=== PATIENT | female | born 1940 | race African-American/Black ===

== ENCOUNTER 2017-05-18 11:35 | Emergency (ER) | payer MEDICARE, MEDICAID ==
[2017-05-18 12:38] LABS: #Basophils 0.1 thou/uL (0.0-0.2); #Eosinphils 0.1 thou/uL (0.0-0.7); #Lymphocytes 1.2 thou/uL (1.20-3.40); #Monocytes 0.5 thou/uL (0.11-0.59); #Neutrophils 5.3 thou/uL (1.40-6.50); %Basophils 1.1 % (0.0-1.0); %Eosinophils 1.8 % (0.0-10.0); %Lymphocytes 16.3 % (21.0-51.0); %Monocytes 7.5 % (0.0-10.0); Hematocrit 37.1 % (36.0-47.0); Mean Platelet Volume 5.7 fL (7.4-10.4); Red Blood Cell (RBC) Count 3.88 mill/uL (4.20-5.40); White Blood Cell (WBC) Count 7.2 thou/uL (4.8-10.8)
[2017-05-18 12:44] LABS: PTT 30.5 SEC (22.9-36.1); Prothrombin Time 13.3 SEC (12.0-14.7)
[2017-05-18 12:53] LABS: ALT (SGPT) Less than 7 U/L (8-55); AST (SGOT) 12 U/L (5-34); Alkaline Phosphatase 79 U/L (40-150); Anion Gap 11 mmol/L (10-20); BUN (Urea Nitrogen) 9 mg/dL (9.8-20.1); Bilirubin, Total 0.6 mg/dL (0.2-1.2); CK (CPK) 62 U/L (29-168); Calc. Creatinine Clearance 0 mL/min (70-130); Carbon Dioxide 32 mmol/L (23-31); Chloride 101 mmol/L (98-107); Estimated GFR-MDRD 58; Globulin 3.5 g/dL (2.4-3.5); Lipase Less than 4 U/L (8-78); Protein, Total 6.9 g/dL (6.0-8.3)
[2017-05-18 12:58] LABS: Troponin I Less than 0.010 ng/mL (< 0.028)
[2017-05-18] MEDS ORDERED: Ondansetron HCl/PF 4 MG/2 ML Vial ONE (14:38)
--- NOTE | 2017-05-18 15:26 | RAD ---
AP CHEST: History: Chest pain. Date: 05-18-17 Comparison: 12-02-16 FINDINGS: AP chest demonstrates elevation of the right hemidiaphragm. Mild cardiomegaly is seen. Ectasia of th e aorta is seen. Lungs are well aerated. No evidence of active intrathoracic disease noted. No evide nce of effusions, pneumonia, or pneumothorax seen. IMPRESSION: Elevated right hemidiaphragm, unchanged since previous comparison radiograph chest. POS: [facility]
--- NOTE | 2017-05-18 17:24 | ULT ---
BILATERAL LOWER EXTREMITY VENOUS DOPPLER ULTRASOUND: Date: 05-18-17 History: 76-year-old with limited movement and bilateral lower extremity pain. FINDINGS: Multiple longitudinal and transverse images of the right and left lower extremity venous system is o btained. Real-time, color flow, and spectral waveform doppler analysis demonstrates no evidence of a cute or old clot seen in the right or left common femoral, superficial femoral, femoral profunda, po pliteal, posterior tibial vein, post trifurcation veins, or greater saphenous vein. IMPRESSION: No evidence of right or left lower extremity deep venous thrombosis. POS: [facility]
== END 2017-05-18 16:02 | disposition home or self-care (01) ==
LOC: ERS 11:35
DX: L03.116 Cellulitis of left lower limb (principal); L03.115 Cellulitis of right lower limb; I11.0 Hypertensive heart disease with heart failure; I50.9 Heart failure, unspecified; E03.9 Hypothyroidism, unspecified; J44.9 Chronic obstructive pulmonary disease, unspecified; F17.200 Nicotine dependence, unspecified, uncomplicated
CPT/HCPCS: 36415; 71010; 80053; 82553; 83690; 83880; 84484; 85025; 85610; 85730; 93005; 93970; 94640; 94760; 96374; J2405

== ENCOUNTER 2018-01-15 07:43 | Outpatient (CLI) | payer MEDICARE, MEDICAID ==
--- NOTE | 2018-01-15 12:21 | CT ---
CT ABDOMEN AND PELVIS: Date: 01/15/18 COMPARISON: 11/10/15. HISTORY: Abdominal pain, epigastric pain for 3-4 months with nausea and vomiting. TECHNIQUE: Serial axial CT imaging is provided at 5 mm intervals from lung bases through pubic symphysis with or al contrast. Coronal reformatted imaging obtained. FINDINGS: The lack of IV contrast limits assessment of the viscera, vascular structures, and for lymphadenopath y. Extensive coronary arterial calcification noted. The visualized lung bases are unremarkable. No free intraperitoneal air or fluid is seen. The gallbladder is surgically absent. Noncontrast enhanced appearance of the liver is unremarkable. There is a hypodense lesion within the inferior anterior aspect of the spleen measuring 3.9 cm, uncha nged. The pancreas and adrenal glands are unremarkable. There is no nephrolithiasis or obstructive uropathy on either side. A gastric suture line is present. There is descending colonic and sigmoid diverticulosis with no evidence for diverticulitis. No focal area of bowel inflammatory change or bowel obstruction is noted. There is diastasis of the anterior a bdominal wall musculature, stable. There is multifocal atherosclerotic calcification of the infrarenal abdominal aorta and its branches. There is a small sliding type hiatal hernia, stable. Limited assessment for lymphadenopathy within the abdomen/pelvis appears unremarkable. There is mild stranding of the subcutaneous fat anterior lower pelvic region at the axial level of th e pubic symphysis and just below the axial level of the pubic symphysis, primarily right-sided, with mild skin thickening. Cellulitis in this region is a possibility. Osseous structures demonstrate mult ilevel lower lumbar spine facet hypertrophic change with disc space narrowing and degenerative end pl ate change as well. IMPRESSION: 1. No evidence for free intraperitoneal air or small bowel obstruction. 2. Atherosclerotic disease as detailed above. 3. Findings suggesting possible mild cellulitis in right inguinal region and the midline soft tissue s anterior to the pubic symphysis. POS: [facility]
== END 2018-01-15 07:44 | disposition home or self-care (01) ==
LOC: CT 07:43
PROVIDERS: ATTEND Surgery
DX: R19.06 Epigastric swelling, mass or lump (principal); I25.10 Atherosclerotic heart disease of native coronary artery without angina pectoris
CPT/HCPCS: 74176

== ENCOUNTER 2018-03-14 14:44 | Inpatient (IN) | payer MEDICARE, MEDICAID ==
[2018-03-14] MEDS ORDERED: Albuterol Sulfate 2.5 mg/3 ml Neb ONE ×2 (14:51→14:52)
[2018-03-14] MEDS ORDERED: Magnesium Sulfate 2 GM/100 ML BAG ONE (14:56)
[2018-03-14] MEDS ORDERED: Dexamethasone 10 MG/ML VIAL ONE (14:56)
[2018-03-14 15:17] LABS: Hemoglobin 12.5 g/dL (12.0-16.0); Mean Corpuscular HGB CONC 32.6 g/dL (32.0-36.0); Mean Corpuscular Hemoglobin 30.2 pg (27.0-31.0); Mean Corpuscular Volume 92.6 fL (78.0-98.0); Mean Platelet Volume 6.2 fL (7.4-10.4); Platelet Count 376 thou/uL (130-400); RBC Distribution Width 13.6 % (11.5-14.5); Red Blood Cell (RBC) Count 4.14 mill/uL (4.20-5.40); White Blood Cell (WBC) Count 14.9 thou/uL (4.8-10.8)
[2018-03-14 15:39] LABS: ALT (SGPT) 27 U/L (8-55); AST (SGOT) 52 U/L (5-34); Albumin 3.6 g/dL (3.4-4.8); Alkaline Phosphatase 87 U/L (40-150); Anion Gap 15 mmol/L (10-20); BUN (Urea Nitrogen) 43 mg/dL (9.8-20.1); Band 23 % (5-11); Bilirubin, Total 1.1 mg/dL (0.2-1.2); CK (CPK) 1257 U/L (29-168); Calc. Creatinine Clearance 0 mL/min (70-130); Calcium 8.9 mg/dL (7.8-10.44); Carbon Dioxide 28 mmol/L (23-31); Chloride 98 mmol/L (98-107); Estimated GFR-MDRD 19; Globulin 3.2 g/dL (2.4-3.5); Glucose 134 mg/dL (83-110); Lipase Less than 4 U/L (8-78); Lymphocytes 5 % (21-51); MDiff Complete? YES; Monocytes 4 % (0-10); Neutrophil 68 % (42-75); PLT Morphology Comment Appears Adequate; Potassium 3.9 mmol/L (3.5-5.1); Protein, Total 6.8 g/dL (6.0-8.3); Sodium 137 mmol/L (136-145)
[2018-03-14 15:44] LABS: Troponin I 0.265 ng/mL (< 0.028)
[2018-03-14 15:48] LABS: CKMB 9.4 ng/mL (0-6.6)
--- NOTE | 2018-03-14 15:52 | RAD ---
AP VIEW OF THE CHEST: INDICATION: Cough and sore throat for 3 days. COMPARISON: Prior exam dated 05/18/17. FINDINGS: There is airspace consolidation within the right upper lobe suspicious for pneumonia. Patchy opaciti es are also present within the right lower lobe. The left lung is clear. Cardiomegaly is stable. P ostsurgical changes of the left shoulder are similar-appearing. IMPRESSION: Findings suspicious for right lung pneumonia predominantly in the right upper lobe. Recommend radiog raphic followup to resolution. POS: [facility]
[2018-03-14 15:55] LABS: pH, Arterial 7.24 (7.35-7.45)
[2018-03-14 15:56] LABS: Base Excess (BEa) 2.8 mEq/L (-2.0 to +3.0); CO2 Tension 77.4 mmHg (35.0-45.0); Hematocrit-ABG 38.6 % (36.0-47.0); Hemoglobin (Hb) 11.4 g/dL (12.0-16.0); O2 Tension (PaO2) 292.3 mmHg (> 70.0)
[2018-03-14 15:57] LABS: Bilirubin Moderate (Negative); Blood, Urine Negative (Negative); Clarity CLOUDY (Clear); Glucose, Urine (Dipstick) Negative (Negative); Leukocyte Small (Negative); Nitrite Negative (Negative); Protein, Urine (Dipstick) 30 mg/dL (Neg-Trace); Specific Gravity, Urine 1.021 (1.002-1.036)
[2018-03-14 15:57] LABS: Analyzer IN Cardio ER; Calcium, Ionized 1.1 mmol/L (1.12-1.30); Puncture Site LRA
[2018-03-14 15:59] LABS: Squamous Epithelial 0-3 HPF (0-3); WBC/HPF 0-3 HPF (0-3)
[2018-03-14 16:00] LABS: Pathc Cast-AUWi Flag 11.92 (0-2.49)
[2018-03-14 16:18] LABS: Bacteria/HPF 2+ HPF (None Seen); Hyaline Casts/LPF 0-3 HYALINE CAST LPF (0-3 Hyaline); RBC/HPF None Seen HPF (0-3)
[2018-03-14 16:19] LABS: Manual Microscopic Reviewed? No Path Casts Seen; Renal Epithelial None Seen HPF (0-3); Transitional Epithelial NONE SEEN HPF (0-3)
[2018-03-14] MEDS ORDERED: Aspirin 300 MG Suppository ONE (16:21)
[2018-03-14] MEDS ORDERED: Acetaminophen 650 MG Suppository PR PRN (17:57)
[2018-03-14] MEDS ORDERED: Ondansetron HCl/PF 4 MG/2 ML Vial IVP PRN (17:57)
--- NOTE | 2018-03-14 18:25 | CT ---
CT HEAD WITHOUT CONTRAST: 03/14/18 Multiple axial tomograms obtained through the head without IV enhancement. INDICATIONS: Mental status change. COMPARISON: Comparison made to head CT of April 2015. Ventricles have normal size and position. There is a new lucency seen in the periventricular white ma tter right frontal lobe suggesting an old lacunar infarct which has occurred since the prior study. There is no evidence of acute hemorrhage or mass. No evidence of acute cortical infarct. The sinuses and mastoids are aerated. IMPRESSION: There are chronic ischemic changes with evidence of a lacunar infarct in the deep white matter on the right which has occurred since prior study. This does not appear acute. No acute process identified. POS: [facility]
[2018-03-14 19:54] VITALS: BMI 44.3
[2018-03-14] MEDS ORDERED: Famotidine/PF 20 mg/2ml Vial SLOW IVP SCH (21:00)
[2018-03-14] MEDS: Cefepime 1 GM in Sodium Chloride 0.9% 100 ML IVPB SCH (21:08)
[2018-03-14] MEDS: Sodium Chloride 0.9% 1,000 ML IV SCH (21:09)
[2018-03-14] MEDS: Docusate 100 MG CAP PO SCH (21:09)
[2018-03-14] MEDS: Heparin 5,000 UNITS/ML VIAL SC SCH (21:09)
--- NOTE | 2018-03-14 23:40 | HP ---
REASON FOR ADMISSION: Acute respiratory failure, sepsis, acute kidney injury, CHF exacerbation, demand ischemia, acute encephalopathy. HISTORY OF PRESENT ILLNESS: Please note majority of this history is obtained by talking to ER physician, Dr. Rosas; son, Mr. Jose Jorge and prior records as patient is not oriented and is on BiPAP. The patient's hospice nurse from [facility] called the son over telephone this morning that she was getting more confused and was in respiratory distress. She was unable to move around or respond to questions. The son finally revoked hospice and asked her to call EMS to take her to the emergency room. When EMS arrived at the scene, she was saturating 65% on room air. She was put on BiPAP and brought to the emergency room. She has had multiple workups done here which reveal the above- mentioned diagnosis. The patient is currently obtunded and barely opens her eyes to deep painful stimulation here. She was under hospice for heart failure and kidney disease. PAST MEDICAL AND SURGICAL HISTORY: History of CHF likely chronic kidney disease , multiple surgeries for ventral hernia, hypertension, coronary artery disease with prior stents, history of gastroparesis from opiate use, hypothyroidism, history of lactose intolerance, chronic headaches, osteoarthritis, obesity, dyslipidemia, vitamin D deficiency, obstructive sleep apnea, chronic anemia, depression, insomnia, GERD, anxiety disorder, prior gastric sleeve, left shoulder surgery, bilateral knee replacement, cholecystectomy, hysterectomy, bowel resection. ALLERGIES: PROVENTIL, REGLAN, SULFA and IODINE. PERSONAL HISTORY: Does not abuse alcohol or drugs. Has a prior history of smoking in the past per Dr. Jose Mix history and physical done in 01/2015. FAMILY HISTORY: Cannot be obtained as patient is not oriented or awake. MEDICATIONS: Per prior records, patient was on baclofen 10 mg twice daily, Symbicort inhaler twice daily, vitamin D 5000 units daily, clonidine 0.1 mg 3 times daily, vitamin B12 of 1 mL IM shots once a month, fluoxetine 60 mg daily, Lasix 40 mg daily, Shirley p.r.n., levothyroxine 200 mcg daily, lorazepam p.r.n., metolazone p.r.n., Protonix 40 mg daily, K-Dur 20 mEq daily, promethazine p.r.n. for itching, zolpidem 5 mg at bedtime. REVIEW OF SYSTEMS: Cannot be obtained as patient is obtunded at present. CODE STATUS: The patient carries out of hospital DNR, which she signed on the 16th of this month. Power of criminal attorney is her son, Mr. Jose Jorge, the number to reach him is [phone]. I have confirmed do not resuscitate status with Mr. Garcia, the son. PHYSICAL EXAMINATION: GENERAL: The patient is a 77-year-old female who is currently in respiratory distress on BiPAP. VITAL SIGNS: Blood pressure 116/94, pulse 94 per minute, respiratory rate 20 per minute, saturating 96% on BiPAP, temperature was 99.5. NECK: Supple. No elevated JVD. HEENT: Eyes, there is mild pallor. No icterus. Pupils are reacting to light. CARDIOVASCULAR SYSTEM: S1, S2 heard. Regular rhythm. RESPIRATORY SYSTEM: Air entry 1+ bilateral. Scattered rales plus in the infra- axillary area. Rhonchi plus bilaterally. ABDOMEN: Soft, bowel sounds heard. No tenderness, rigidity or guarding. EXTREMITIES: There is peripheral edema, no calf tenderness, no obvious size discrepancies in the calf area. Peripheral pulses are 1+ bilateral. No ischemic ulcerations. The patient has a dressing on her foot. CENTRAL NERVOUS SYSTEM: The patient does not have any gross focal signs seen. She is obtunded for a complete neurologic exam to be completed. PSYCHIATRIC: Cannot be assessed as patient is obtunded at present. LABORATORY DATA: White count of 14, H&H 12 and 38, platelet count 376 with 68% neutrophils and 23% bands. ABG done shows a pH of 7.24, PCO2 of 77, pO2 of 292 , bicarbonate is 32 on the blood gas. BUN 43, creatinine 2.8, serum bicarbonate is 28, potassium 3.9, glucose 134, AST 52, ALT 27, CK-MB 9.4. CK levels 1257. BNP is 826, albumin is 3.6, troponin I 0.26. UA shows small leukocyte esterase with 2+ bacteria. Chest x-ray done shows findings suspicious for right upper lobe pneumonia. A CT brain has been done. The official results are pending at present. EKG done shows normal sinus rhythm at 94 beats per minute with nonspecific ST-T wave changes. CLINICAL IMPRESSION AND PLAN: The patient will be admitted to [facility] for acute respiratory failure with hypoxia and hypercarbia, sepsis, acute kidney injury, acute encephalopathy, pneumonia. Blood and urine cultures will be obtained in the ER here. She will be placed on cefepime and Levaquin for now. We will place her also on steroids and DuoNebs. The patient has signed out of hospital DNR on the 16 of this month and I have confirmed this with son as well. We will obtain an echo with 2D Doppler for current LV function. We will also gently hydrate her with normal saline at 100 mL per hour. The current plan is to see if she responds to these measures by tomorrow. If patient were to decline, she will be placed under inpatient hospice. Mr. Jose Jorge son is aware of the current plan and approves it. He does not want her to suffer. No heroic measures need to be done on her per Mr. Garcia. He is okay with the current BiPAP and fluid resuscitation with antibiotics for now. ANTONELLA
[2018-03-15 04:21] LABS: Albumin 3.2 g/dL (3.4-4.8); Anion Gap 15 mmol/L (10-20); BUN (Urea Nitrogen) 41 mg/dL (9.8-20.1); Calc. Creatinine Clearance 46 mL/min (70-130); Calcium 8.6 mg/dL (7.8-10.44); Carbon Dioxide 26 mmol/L (23-31); Chloride 104 mmol/L (98-107); Estimated GFR-MDRD 29; Glucose 152 mg/dL (83-110); Phosphorus 4.1 mg/dL (2.3-4.7); Potassium 3.8 mmol/L (3.5-5.1); Sodium 141 mmol/L (136-145)
[2018-03-15] MEDS: Sodium Chloride 0.9% 1,000 ML IV SCH ×3 (05:09→18:28)
[2018-03-15] MEDS: Levothyroxine Sodium 100 MCG TAB PO SCH (05:09)
[2018-03-15 05:12] LABS: Band 32 % (5-11); Hemoglobin 12.1 g/dL (12.0-16.0); Lymphocytes 6 % (21-51); MDiff Complete? YES; Mean Corpuscular HGB CONC 32.7 g/dL (32.0-36.0); Mean Corpuscular Hemoglobin 30.4 pg (27.0-31.0); Mean Corpuscular Volume 92.8 fL (78.0-98.0); Mean Platelet Volume 6.4 fL (7.4-10.4); Metamyelocyte 6 % (0-0); Monocytes 6 % (0-10); Neutrophil 50 % (42-75); Platelet Count 321 thou/uL (130-400); RBC Distribution Width 13.6 % (11.5-14.5); Red Blood Cell (RBC) Count 3.99 mill/uL (4.20-5.40); White Blood Cell (WBC) Count 10.4 thou/uL (4.8-10.8)
[2018-03-15] MEDS ORDERED: Prevnar 13-Val Conj/PF 0.5 ML SYRINGE IM ONE (09:00)
[2018-03-15] MEDS: Cefepime 1 GM in Sodium Chloride 0.9% 100 ML IVPB SCH ×2 (09:22→20:50)
[2018-03-15] MEDS: Heparin 5,000 UNITS/ML VIAL SC SCH ×3 (09:23→20:50)
[2018-03-15] MEDS: Docusate 100 MG CAP PO SCH ×2 (09:23→20:56)
--- NOTE | 2018-03-15 11:50 | PDOC.PN ---
- Subjective Encounter Start Date: 03/15/18 Encounter Start Time: 07:15 Subjective: is awake, responds well to verbal stimuli this am -: is off bipap -: has cough with expectoration of thick brown sputum, struggles to bring itup - Objective MAR Reviewed: Yes Vital Signs & Weight: Vital Signs (12 hours) Temp Pulse Resp BP Pulse Ox 03/15/18 11:29 97.5 F L 71 15 139/68 98 03/15/18 08:08 99 03/15/18 08:00 97.3 F L 72 22 H 03/15/18 07:55 72 22 H 03/15/18 07:39 98.0 F 87 21 H 113/62 99 03/15/18 03:58 97.3 F L 81 22 H 99/77 100 03/15/18 00:15 82 22 H 92 L 03/15/18 00:00 97.8 F 76 22 H 133/76 98 Weight Weight 268 lb 14.4 oz I&O: 03/14/18 03/15/18 03/16/18 06:59 06:59 06:59 Intake Total 1280 Output Total 375 Balance 905 Result Diagrams: 03/15/18 03:42 03/15/18 03:42 Phys Exam - Physical Examination HEENT: PERRLA, sclera anicteric Neck: no JVD, supple Respiratory: no wheezing coarse rales Cardiovascular: RRR, no significant murmur Gastrointestinal: soft, non-tender, positive bowel sounds Musculoskeletal: pulses present, edema present Neurological: non-focal, moves all 4 limbs Dx/Plan (1) Sepsis Code(s): A41.9 - SEPSIS, UNSPECIFIED ORGANISM Status: Acute Qualifiers: Sepsis type: sepsis due to unspecified organism Qualified Code(s): A41.9 - Sepsis, unspecified organism (2) PNA (pneumonia) Code(s): J18.9 - PNEUMONIA, UNSPECIFIED ORGANISM Status: Acute Qualifiers: Pneumonia type: due to unspecified organism (3) BIMAL (acute kidney injury) Code(s): N17.9 - ACUTE KIDNEY FAILURE, UNSPECIFIED Status: Acute (4) CKD (chronic kidney disease) stage 3, GFR 30-59 ml/min Code(s): N18.3 - CHRONIC KIDNEY DISEASE, STAGE 3 (MODERATE) Status: Chronic (5) Acute respiratory failure with hypoxia and hypercapnia Code(s): J96.01 - ACUTE RESPIRATORY FAILURE WITH HYPOXIA; J96.02 - ACUTE RESPIRATORY FAILURE WITH HYPERCAPNIA Status: Acute Comment: resolving (6) Acute encephalopathy Code(s): G93.40 - ENCEPHALOPATHY, UNSPECIFIED Status: Resolved (7) CHF (congestive heart failure) Code(s): I50.9 - HEART FAILURE, UNSPECIFIED Status: Acute Qualifiers: Heart failure type: combined systolic and diastolic Heart failure chronicity: acute on chronic Qualified Code(s): I50.43 - Acute on chronic combined systolic (congestive) and diastolic (congestive) heart failure - Plan is on iv fluids, encourage po intake -: watch for overload, renal function is slowly getting better -: pt was in hospice for chf and cad -: on cefepime and levaquin, may dc steroids if ok with -: nebs, mucinex, tessalon, may need chest physiotherapy * . Review of Systems - Medications/Allergies Allergies/Adverse Reactions: Allergies Allergy/AdvReac Type Severity Reaction Status Date / Time metoclopramide HCl Allergy Intermediate MADE HER Verified 03/14/18 19:59 [From Reglan] SICK TO HER STOMACH Sulfa (Sulfonamide Allergy Intermediate Rash Verified 03/14/18 19:59 Antibiotics) albuterol sulfate Allergy PT NOT Verified 03/14/18 19:59 [From Proventil A] SURE WHAT REACTION WAS IODINE IV DYE Allergy Intermediate Hives Uncoded 03/14/18 19:59 Medications: Current Medications Acetaminophen (Tylenol) 650 mg PO Q4H PRN PRN Reason: Headache/Fever or Pain Acetaminophen (Tylenol) 650 mg TN Q4H PRN PRN Reason: Headache/Fever or Pain Albuterol/Ipratropium (Duoneb) 3 ml NEB [id number] [facility] Last Admin: 03/15/18 07:55 Dose: 3 ml Docusate Sodium (Colace) 100 mg PO BID [facility] Last Admin: 03/15/18 09:23 Dose: 100 mg Famotidine (Pepcid) 20 mg SLOW IVP Q24HR [facility] Last Admin: 03/14/18 21:08 Dose: 20 mg Heparin Sodium (Porcine) (Heparin) 5,000 units SC TID [facility] Last Admin: 03/15/18 09:23 Dose: 5,000 units Cefepime HCl 1 gm/ Sodium (Chloride) 100 mls @ 200 mls/hr IVPB 0800,2000 [facility] Last Admin: 03/15/18 09:22 Dose: 100 mls Levofloxacin 500 mg/ Device 100 mls @ 100 mls/hr IVPB 1600 CHUN Sodium Chloride (Normal Saline 0.9%) 1,000 mls @ 100 mls/hr IV .Q10H [facility] Last Admin: 03/15/18 05:09 Dose: 1,000 mls Levothyroxine Sodium (Synthroid) 200 mcg PO 0600 [facility] Last Admin: 03/15/18 05:09 Dose: 200 mcg Methylprednisolone Sodium Succinate (Solu-Medrol) 40 mg IVP Q6HR [facility] Last Admin: 03/15/18 05:09 Dose: 40 mg Ondansetron HCl (Zofran) 4 mg IVP Q6H PRN PRN Reason: Nausea/Vomiting
--- NOTE | 2018-03-15 14:27 | PRG ---
DATE OF SERVICE: 03/15/2018 SERVICE: Pulmonary Medicine. REASON FOR CONSULTATION: Respiratory failure. HISTORY OF PRESENT ILLNESS: Patient is a 77-year-old -[place] female who was on home hospice . She was at home by herself and a provider went out to check on her. There was increasing agitatio n and shortness of breath. The provider felt that it was going to be challenging to control some of her symptoms at the home setting. As such, [facility]. That being said, she called her the next of kin in order to arrange for this to occur and apparently he said to revoke hospice and sent her to the emergency department so that we can clarify with the underlying issues and possibly fix it. She was placed in the IMCU on BiPAP. This morning, she is breathing perfectly comfortably. She has no complaints of shortness of breath, chest pain, n ausea, vomiting, fevers or chills. Otherwise, there have been no significant overnight events. PAST MEDICAL HISTORY: 1. Chronic kidney disease, stage 4. 2. Chronic systolic heart failure. 3. Hypertension. 4. Coronary artery disease. 5. Gastroparesis. 6. Hypothyroidism. 7. Osteoarthritis. 8. Obesity. 9. Dyslipidemia. 10. Obstructive sleep apnea. 11. Major depressive disorder. 12. Gastroesophageal reflux disease. 13. Anxiety disorder. 14. History of gastric sleeve. PAST SURGICAL HISTORY: 1. Cholecystectomy. 2. Hysterectomy. 3. Bilateral knee replacement. 4. Left shoulder surgery. 5. Abdominal surgeries include multiple bowel obstructions and resections. ALLERGIES: PROVENTIL, REGLAN, SULFA, IODINE. MEDICATIONS: List of her inpatient medications were reviewed. No specific updates were made at this time. FAMILY HISTORY: Noncontributory. SOCIAL HISTORY: She currently lives at home alone. She does not use any alcohol, tobacco or illicit drugs. She has a remote history of smoking. REVIEW OF SYSTEMS: General, head, ears, eyes, nose, throat, cardiovascular, respiratory, GI, , mus culoskeletal, neurologic and skin is negative except as mentioned in the HPI. PHYSICAL EXAMINATION: VITAL SIGNS: Afebrile, pulse 71, blood pressure 139/68, respirations 15, saturation 98% on 1 liter n stevie cannula. GENERAL: The patient is awake, alert, no apparent distress. LUNGS: There is excellent air entry bilaterally. There is a prolonged expiratory phase with rhonchi , it changed with cough. HEART: Normal rate, regular. ABDOMEN: Soft. Diffusely tender to palpation without any rebound or guarding. Bowel sounds are pre sent. : Patel catheter in place. NEUROLOGIC: Grossly nonfocal. LABORATORY DATA: WBC 10.4, hemoglobin 12.1, platelets 321,000. Neutrophils 50%, band count is 32% a nd up trending. A pH 7.24, pCO2 of 77, pO2 of 292 on 100% FiO2 at that time. Creatinine 2.02 which is well above her baseline of 0.8. It is trending down nicely. Phosphorus falls within normal limit s. Lactate is negative. BNP 826. Liver function studies are otherwise unremarkable. CK 1257. Uri nalysis is unremarkable. Blood culture is growing gram-positive devan in 1 out of 2, likely contaminan t. Urine cultures negative to date. IMAGIN. CT of the brain demonstrates no acute intracranial abnormality. 2. Chest x-ray demonstrates consolidation in the right upper lobe, consistent with pneumonia. Other brenner, no pleural parenchymal opacifications are identified. ASSESSMENT: 1. Acute on chronic hypoxic and hypercapnic respiratory failure. 2. Community-acquired pneumonia. 3. Morbid obesity. 4. Severe sepsis. 5. Acute kidney injury. DISCUSSION AND PLAN: The patient is doing fine from a respiratory standpoint. She can be transition ed to the floor on intermittent BiPAP, but she does use BiPAP at home. We will continue our antibiot ics, nebulized medications, and other general supportive care. Ultimately, she was safe from s tore. It is not clear to me what her admitting diagnosis at the hospice is. That being said, I will need to discuss whether or not transition back home to comfort care is indicated.
[2018-03-16] MEDS: Sodium Chloride 0.9% 1,000 ML IV SCH ×2 (05:57→09:54)
[2018-03-16] MEDS: Levothyroxine Sodium 100 MCG TAB PO SCH (05:57)
[2018-03-16 06:40] LABS: Band 39 % (5-11); Hemoglobin 10.7 g/dL (12.0-16.0); Lymphocytes 7 % (21-51); MDiff Complete? YES; Mean Corpuscular HGB CONC 32.6 g/dL (32.0-36.0); Mean Platelet Volume 6.8 fL (7.4-10.4); Monocytes 6 % (0-10); Neutrophil 48 % (42-75); Nucleated RBC 1 % (0); Platelet Count 293 thou/uL (130-400); RBC Distribution Width 13.5 % (11.5-14.5); Red Blood Cell (RBC) Count 3.57 mill/uL (4.20-5.40); White Blood Cell (WBC) Count 11.7 thou/uL (4.8-10.8)
[2018-03-16 06:56] LABS: Anion Gap 13 mmol/L (10-20); BUN (Urea Nitrogen) 34 mg/dL (9.8-20.1); BUN/Creatinine Ratio 25.19; Calc. Creatinine Clearance 69 mL/min (70-130); Calcium 8.4 mg/dL (7.8-10.44); Carbon Dioxide 28 mmol/L (23-31); Chloride 105 mmol/L (98-107); Estimated GFR-MDRD 46; Glucose 145 mg/dL (83-110); Phosphorus 2.2 mg/dL (2.3-4.7); Potassium 3.5 mmol/L (3.5-5.1); Sodium 142 mmol/L (136-145)
[2018-03-16] MEDS: Heparin 5,000 UNITS/ML VIAL SC SCH ×3 (09:57→21:38)
[2018-03-16] MEDS: Cefdinir 300 MG CAP PO SCH ×2 (09:57→21:37)
[2018-03-16] MEDS: Docusate 100 MG CAP PO SCH ×2 (09:57→21:38)
[2018-03-16] MEDS: Cefepime 1 GM in Sodium Chloride 0.9% 100 ML IVPB SCH (10:25)
--- NOTE | 2018-03-16 12:21 | PDOC.PN ---
- Subjective Encounter Start Date: 03/16/18 Encounter Start Time: 08:45 Subjective: awake, responds well to verbal stimuli -: is moving extremities better but still deconditioned -: coughing brown sputum, has loss of appetite, didn't eat her breakfast - Objective MAR Reviewed: Yes Vital Signs & Weight: Vital Signs (12 hours) Temp Pulse Resp BP Pulse Ox 03/16/18 08:00 98.0 F 69 20 98 03/16/18 07:25 98.0 F 69 20 147/84 H 98 03/16/18 06:43 63 20 95 03/16/18 03:41 98.2 F 65 18 153/89 H 99 Weight Weight 268 lb 14.4 oz I&O: 03/15/18 03/16/18 03/17/18 06:59 06:59 06:59 Intake Total 1280 1800 Output Total 375 1050 Balance 905 750 Result Diagrams: 03/16/18 04:27 03/16/18 04:27 Phys Exam - Physical Examination HEENT: PERRLA, sclera anicteric Neck: no JVD, supple Respiratory: no wheezing, no rales Cardiovascular: RRR, no significant murmur Gastrointestinal: soft, non-tender, positive bowel sounds Musculoskeletal: pulses present, edema present Neurological: non-focal, moves all 4 limbs Psychiatric: A&O x 3 Dx/Plan (1) Sepsis Code(s): A41.9 - SEPSIS, UNSPECIFIED ORGANISM Status: Acute Qualifiers: Sepsis type: sepsis due to unspecified organism Qualified Code(s): A41.9 - Sepsis, unspecified organism (2) PNA (pneumonia) Code(s): J18.9 - PNEUMONIA, UNSPECIFIED ORGANISM Status: Acute Qualifiers: Pneumonia type: due to unspecified organism (3) BIMAL (acute kidney injury) Code(s): N17.9 - ACUTE KIDNEY FAILURE, UNSPECIFIED Status: Acute Comment: resolving (4) CKD (chronic kidney disease) stage 3, GFR 30-59 ml/min Code(s): N18.3 - CHRONIC KIDNEY DISEASE, STAGE 3 (MODERATE) Status: Chronic (5) Acute respiratory failure with hypoxia and hypercapnia Code(s): J96.01 - ACUTE RESPIRATORY FAILURE WITH HYPOXIA; J96.02 - ACUTE RESPIRATORY FAILURE WITH HYPERCAPNIA Status: Acute Comment: resolving (6) Acute encephalopathy Code(s): G93.40 - ENCEPHALOPATHY, UNSPECIFIED Status: Resolved (7) CHF (congestive heart failure) Code(s): I50.9 - HEART FAILURE, UNSPECIFIED Status: Acute Qualifiers: Heart failure type: combined systolic and diastolic Heart failure chronicity: acute on chronic Qualified Code(s): I50.43 - Acute on chronic combined systolic (congestive) and diastolic (congestive) heart failure - Plan pt has made good recovery from multiple organ involvement -: creatinine around 1.3, wbc down to 11 still has 39% bands -: on nasal canula now, dc iv fluids -: change to oral omnicef, is off steroids from yesterday -: PT/OT to mobilize as tolerated, needs skilled placement with hospice * . Review of Systems - Medications/Allergies Allergies/Adverse Reactions: Allergies Allergy/AdvReac Type Severity Reaction Status Date / Time metoclopramide HCl Allergy Intermediate MADE HER Verified 03/14/18 19:59 [From Reglan] SICK TO HER STOMACH Sulfa (Sulfonamide Allergy Intermediate Rash Verified 03/14/18 19:59 Antibiotics) albuterol sulfate Allergy PT NOT Verified 03/14/18 19:59 [From Proventil HFA] SURE WHAT REACTION WAS IODINE IV DYE Allergy Intermediate Hives Uncoded 03/14/18 19:59 Medications: Current Medications Acetaminophen (Tylenol) 650 mg PO Q4H PRN PRN Reason: Headache/Fever or Pain Acetaminophen (Tylenol) [address] Q4H PRN PRN Reason: Headache/Fever or Pain Albuterol/Ipratropium (Duoneb) 3 ml NEB [id number] [facility] Last Admin: 03/16/18 06:43 Dose: 3 ml Cefdinir (Omnicef) 300 mg PO BID [facility] Last Admin: 03/16/18 09:57 Dose: 300 mg Docusate Sodium (Colace) 100 mg PO BID [facility] Last Admin: 03/16/18 09:57 Dose: Not Given Heparin Sodium (Porcine) (Heparin) 5,000 units SC TID [facility] Last Admin: 03/16/18 09:57 Dose: 5,000 units Sodium Chloride (Normal Saline 0.9%) 1,000 mls @ 30 mls/hr IV .Q24H [facility] Last Admin: 03/16/18 09:54 Dose: Not Given Levothyroxine Sodium (Synthroid) 200 mcg PO 0600 [facility] Last Admin: 03/16/18 05:57 Dose: 200 mcg Ondansetron HCl (Zofran) 4 mg IVP Q6H PRN PRN Reason: Nausea/Vomiting
[2018-03-16] MEDS ORDERED: Mag-Al Plus 1200 MG/1200 MG/120 MG/30 ML UDCUP PO PRN (14:48)
[2018-03-16] MEDS: Gabapentin 300 MG CAP PO SCH ×2 (15:53→21:38)
[2018-03-16] MEDS: fentaNYL 50 mcg/hour Patch TD SCH (15:54)
--- NOTE | 2018-03-16 19:02 | PRG ---
DATE OF SERVICE: 03/16/2018 Negar Mac has no new complaints. She says she is feeling a little better. PHYSICAL EXAMINATION: VITAL SIGNS: She is afebrile, heart rate 82, respiratory rate is 18, oximetry is 100% on 2 liters, b lood pressure was 86/80. LUNGS: Remarkable for mild wheezes bilaterally. HEART: Regular rhythm. ABDOMEN: Soft and nontender. EXTREMITIES: Without asymmetry. IMPRESSION: 1. Chronic obstructive pulmonary disease. 2. Pneumonia. 3. Obesity. 4. Intravascular volume depletion. 5. History of medical noncompliance in the past. 6. History of noncompliance with smoking cessation. She is smoking up until this admission. 7. Chronic kidney disease. 8. History of coronary artery disease with systolic heart failure. 9. History of gastroparesis. 10. History of lipid disorder. 11. History of sleep apnea. Currently, the patient and the caseworkers were looking at placement, reviewed her microbiology. Blo od cultures are negative. One culture and the other culture has two organisms that are likely contam inants. We will continue to follow.
[2018-03-16] MEDS: Mometasone/Formoterol 120 PUFF INHALER INH SCH (19:45)
[2018-03-16] MEDS: Carvedilol 3.125 MG TAB PO SCH (21:38)
[2018-03-17] MEDS: Sodium Chloride 0.9% 1,000 ML IV SCH (05:30)
[2018-03-17] MEDS: Levothyroxine Sodium 100 MCG TAB PO SCH (05:30)
[2018-03-17 05:37] LABS: Albumin 2.8 g/dL (3.4-4.8); Anion Gap 12 mmol/L (10-20); BUN (Urea Nitrogen) 19 mg/dL (9.8-20.1); BUN/Creatinine Ratio 22.35; Calc. Creatinine Clearance 110 mL/min (70-130); Calcium 8.4 mg/dL (7.8-10.44); Carbon Dioxide 28 mmol/L (23-31); Chloride 107 mmol/L (98-107); Estimated GFR-MDRD 79; Glucose 125 mg/dL (83-110); Phosphorus 1.3 mg/dL (2.3-4.7); Potassium 3.1 mmol/L (3.5-5.1); Sodium 144 mmol/L (136-145)
[2018-03-17] MEDS ORDERED: Potassium Phosphate 21 MMOL in Sodium Chloride 0.9% 250 ML 250 ML IVPB SCH (06:15)
[2018-03-17] MEDS: Mometasone/Formoterol 120 PUFF INHALER INH SCH ×2 (06:30→19:28)
[2018-03-17 06:50] LABS: Band 16 % (5-11); Lymphocytes 13 % (21-51); MDiff Complete? YES; Mean Corpuscular HGB CONC 32.5 g/dL (32.0-36.0); Mean Corpuscular Hemoglobin 29.8 pg (27.0-31.0); Mean Corpuscular Volume 91.7 fL (78.0-98.0); Mean Platelet Volume 6.5 fL (7.4-10.4); Monocytes 5 % (0-10); Neutrophil 66 % (42-75); Platelet Count 266 thou/uL (130-400); RBC Distribution Width 13.6 % (11.5-14.5); Red Blood Cell (RBC) Count 3.37 mill/uL (4.20-5.40); White Blood Cell (WBC) Count 9.7 thou/uL (4.8-10.8)
[2018-03-17] MEDS: Cefdinir 300 MG CAP PO SCH ×2 (08:05→20:45)
[2018-03-17] MEDS: FLUoxetine HCl 20 MG CAP PO SCH (08:05)
[2018-03-17] MEDS: Aspirin 81 mg Enteric Coated Tablet PO SCH (08:06)
[2018-03-17] MEDS: Gabapentin 300 MG CAP PO SCH ×3 (08:06→20:45)
[2018-03-17] MEDS: Pantoprazole 40 MG GRANULES PACKET PO SCH (08:06)
[2018-03-17] MEDS: Carvedilol 3.125 MG TAB PO SCH ×2 (08:06→20:45)
[2018-03-17] MEDS: Heparin 5,000 UNITS/ML VIAL SC SCH ×3 (08:06→20:45)
[2018-03-17] MEDS: Docusate 100 MG CAP PO SCH ×2 (08:06→20:45)
[2018-03-17] MEDS ORDERED: diphenhydrAMINE 25 MG CAP PO PRN (16:16)
--- NOTE | 2018-03-17 17:09 | RAD ---
CHEST 1 VIEW: Date: 03/17/18 HISTORY: Pneumonia. COMPARISON: Chest radiograph dated 03/14/18. FINDINGS: Right middle and lower lobe air space opacities have progressed. Left lower lobe air space opacity al so present. Lungs are severely hypoinflated. No pneumothorax. IMPRESSION: Multifocal air space opacities concerning for pneumonia. POS: [facility]
--- NOTE | 2018-03-17 18:00 | PRG ---
DATE OF SERVICE: 03/17/2018 SUBJECTIVE: Ms. Charles did well overnight. She has no new complaints. [employer] is working on [employer]. PHYSICAL EXAMINATION: VITAL SIGNS: Stable. She is afebrile, heart rate is 80, respiratory rate is 18, oximetry is 97% on 2 liters, blood pressure is elevated at 170/93 earlier this morning. There is no blood pressure scotty rded since 7 o'clock this morning. LUNGS: Clear. HEART: Regular rhythm. ABDOMEN: Soft. IMPRESSION: 1. Chronic obstructive pulmonary disease. 2. Chronic kidney disease. 3. Chronic systolic heart failure. 4. Hypertension. 5. Coronary artery disease. 6. Ongoing tobacco use. 7. Gastroparesis. 8. History of sleep apnea. 9. History of noncompliance with medical followups in my office. PLAN: Continue attempts at placement. She appears to be medically stable.
[2018-03-17] MEDS: Losartan 25 MG TAB PO SCH (20:45)
[2018-03-17] MEDS: cloNIDine 0.1 MG TAB PO SCH (20:45)
[2018-03-17] MEDS: Acetaminophen 325 MG TAB PO PRN (20:45)
--- NOTE | 2018-03-17 21:55 | PDOC.PN ---
- Subjective Encounter Start Date: 03/17/18 Encounter Start Time: 16:00 Doing well in general. Complains of some modest right anterior chest pain. Feels like a needle. Has had cholecystectomy. - Objective Vital Signs & Weight: Vital Signs (12 hours) Temp Pulse Resp BP BP Pulse Ox 03/17/18 20:45 139/76 03/17/18 20:00 98.1 F 67 18 139/76 95 03/17/18 19:26 16 03/17/18 12:13 80 16 97 Weight Weight 268 lb 14.4 oz I&O: 03/16/18 03/17/18 03/18/18 06:59 06:59 06:59 Intake Total 1800 1140 920 Output Total 1050 1275 450 Balance 750 -135 470 Result Diagrams: 03/17/18 03:47 03/17/18 03:47 Phys Exam - Physical Examination Constitutional: NAD Obese. Neck: no JVD, supple Respiratory: no wheezing, no rales, no rhonchi Exam compromised by obesity. Mild TTP right anterior chest. Cardiovascular: RRR, no significant murmur Gastrointestinal: soft, non-tender, no distention Musculoskeletal: no edema Dx/Plan (1) Acute respiratory failure with hypoxia and hypercapnia Code(s): J96.01 - ACUTE RESPIRATORY FAILURE WITH HYPOXIA; J96.02 - ACUTE RESPIRATORY FAILURE WITH HYPERCAPNIA Status: Acute Comment: resolving (2) Sepsis Code(s): A41.9 - SEPSIS, UNSPECIFIED ORGANISM Status: Acute Qualifiers: Sepsis type: sepsis due to unspecified organism Qualified Code(s): A41.9 - Sepsis, unspecified organism (3) CKD (chronic kidney disease) stage 3, GFR 30-59 ml/min Code(s): N18.3 - CHRONIC KIDNEY DISEASE, STAGE 3 (MODERATE) Status: Chronic (4) Acute encephalopathy Code(s): G93.40 - ENCEPHALOPATHY, UNSPECIFIED Status: Resolved (5) BIMAL (acute kidney injury) Code(s): N17.9 - ACUTE KIDNEY FAILURE, UNSPECIFIED Status: Acute Comment: resolving (6) PNA (pneumonia) Code(s): J18.9 - PNEUMONIA, UNSPECIFIED ORGANISM Status: Acute Qualifiers: Pneumonia type: due to unspecified organism - Plan * Generally doing well. Placement issue. Will repeat CXR for the chest discomfort. On oral omnicef. Sputum growing Staph and E. coli. Clinically stable. No change in abx.
[2018-03-18] MEDS: Levothyroxine Sodium 100 MCG TAB PO SCH (05:20)
[2018-03-18 05:35] LABS: Albumin 2.6 g/dL (3.4-4.8); Anion Gap 14 mmol/L (10-20); BUN (Urea Nitrogen) 13 mg/dL (9.8-20.1); Calc. Creatinine Clearance 140 mL/min (70-130); Calcium 8.3 mg/dL (7.8-10.44); Carbon Dioxide 27 mmol/L (23-31); Chloride 107 mmol/L (98-107); Estimated GFR-MDRD Greater than 90; Glucose 109 mg/dL (83-110); Phosphorus 1.6 mg/dL (2.3-4.7); Potassium 3.7 mmol/L (3.5-5.1); Sodium 144 mmol/L (136-145)
[2018-03-18] MEDS ORDERED: Potassium Phosphate 21 MMOL in Sodium Chloride 0.9% 250 ML 250 ML IVPB SCH (06:30)
[2018-03-18 06:57] LABS: Hemoglobin 10.3 g/dL (12.0-16.0); Mean Corpuscular HGB CONC 31.5 g/dL (32.0-36.0); Mean Corpuscular Hemoglobin 29.2 pg (27.0-31.0); Mean Corpuscular Volume 92.6 fL (78.0-98.0); Mean Platelet Volume 6.9 fL (7.4-10.4); Platelet Count 241 thou/uL (130-400); RBC Distribution Width 13.6 % (11.5-14.5); Red Blood Cell (RBC) Count 3.54 mill/uL (4.20-5.40); White Blood Cell (WBC) Count 12.5 thou/uL (4.8-10.8)
[2018-03-18 07:25] LABS: Band 18 % (5-11); Eosinophils 2 % (0-10); Lymphocytes 5 % (21-51); MDiff Complete? YES; Monocytes 3 % (0-10); Myelocyte 1 % (0-0); Neutrophil 71 % (42-75); PLT Morphology Comment Appears Adequate; Polychromasia SLIGHT = 2-3 cells (100X) (0-2/hpf); Toxic Granulation SLIGHT
[2018-03-18] MEDS: Clopidogrel Bisulfate 75 MG TAB PO SCH (08:00)
[2018-03-18] MEDS: Atorvastatin Calcium 40 MG TAB PO SCH (08:00)
[2018-03-18] MEDS: Docusate 100 MG CAP PO SCH ×2 (08:00→20:52)
[2018-03-18] MEDS: Aspirin 81 mg Enteric Coated Tablet PO SCH (08:00)
[2018-03-18] MEDS: Spironolactone 25 MG TAB PO SCH (08:00)
[2018-03-18] MEDS: cloNIDine 0.1 MG TAB PO SCH ×3 (08:00→20:51)
[2018-03-18] MEDS: Carvedilol 3.125 MG TAB PO SCH ×2 (08:01→20:51)
[2018-03-18] MEDS: Pantoprazole 40 MG GRANULES PACKET PO SCH (08:01)
[2018-03-18] MEDS: Gabapentin 300 MG CAP PO SCH ×3 (08:01→20:52)
[2018-03-18] MEDS: FLUoxetine HCl 20 MG CAP PO SCH (08:01)
[2018-03-18] MEDS: Acetaminophen 325 MG TAB PO PRN (08:02)
[2018-03-18] MEDS: Heparin 5,000 UNITS/ML VIAL SC SCH ×3 (08:02→20:52)
[2018-03-18] MEDS: Cefdinir 300 MG CAP PO SCH ×2 (08:02→20:51)
[2018-03-18] MEDS: Metoprolol Tartrate 25 MG TAB PO SCH (08:02)
[2018-03-18] MEDS: Sodium Chloride 0.9% 1,000 ML IV SCH (08:03)
[2018-03-18] MEDS: Mometasone/Formoterol 120 PUFF INHALER INH SCH ×2 (08:56→19:07)
--- NOTE | 2018-03-18 15:41 | EKG ---
Test Reason : Blood Pressure : / mmHG Vent. Rate : 080 BPM Atrial Rate : 080 BPM P-R Int : 166 ms QRS Dur : 082 ms QT Int : 386 ms P-R-T Axes : 039 024 037 degrees QTc Int : 445 ms Normal sinus rhythm Low voltage QRS Cannot rule out Inferior infarct (cited on or before 10-NOV-2015) Abnormal ECG When compared with ECG of 14-MAR-2018 15:03, (Unconfirmed) QRS duration has decreased T wave inversion no longer evident in Inferior leads Nonspecific T wave abnormality no longer evident in Lateral leads Confirmed by MILTON TURPIN, SGladys ([id number]) on 03/18/2018 3:40:43 PM Referred By: FRED Confirmed By:DR. Ashleigh ROSE MD
[2018-03-18] MEDS: HYDROcodone/Acetaminophen 7.5/325 mg Tablet PO PRN ×2 (16:15→21:00)
--- NOTE | 2018-03-18 20:21 | PDOC.PN ---
- Subjective Encounter Start Date: 03/18/18 Encounter Start Time: 13:15 Still having some discomfort in the right chest area. Requests morphine. Still has some cough. - Objective Vital Signs & Weight: Vital Signs (12 hours) Pulse Resp BP BP Pulse Ox 03/18/18 19:07 79 16 97 03/18/18 16:06 167/104 H 03/18/18 14:22 81 16 98 03/18/18 12:00 99 03/18/18 08:56 79 18 97 03/18/18 08:52 135/82 Weight Weight 268 lb 14.4 oz I&O: 03/17/18 03/18/18 03/19/18 06:59 06:59 06:59 Intake Total 1140 1520 2060 Output Total 1275 750 650 Balance -197 515 0969 Result Diagrams: 03/18/18 06:41 03/18/18 04:50 Phys Exam - Physical Examination Constitutional: NAD Morbidly obese. HEENT: oral pharynx no lesions Neck: no JVD, supple Scattered bilateral rales. Cardiovascular: RRR, no significant murmur Gastrointestinal: soft, non-tender, no distention TTP right anterior chest. Psychiatric: normal affect Dx/Plan (1) Acute respiratory failure with hypoxia and hypercapnia Code(s): J96.01 - ACUTE RESPIRATORY FAILURE WITH HYPOXIA; J96.02 - ACUTE RESPIRATORY FAILURE WITH HYPERCAPNIA Status: Resolved (2) Sepsis Code(s): A41.9 - SEPSIS, UNSPECIFIED ORGANISM Status: Resolved Qualifiers: Sepsis type: sepsis due to unspecified organism Qualified Code(s): A41.9 - Sepsis, unspecified organism (3) PNA (pneumonia) Code(s): J18.9 - PNEUMONIA, UNSPECIFIED ORGANISM Status: Acute Qualifiers: Pneumonia type: due to methicillin-sensitive Staphylococcus aureus (MSSA) Laterality: bilateral Plan: On oral omnicef. Will add Levaquin based on persistent infiltrate and right chest discomfort and the sputum culture growing Staph and E. coli. WBC up a little as well. (4) CKD (chronic kidney disease) stage 3, GFR 30-59 ml/min Code(s): N18.3 - CHRONIC KIDNEY DISEASE, STAGE 3 (MODERATE) Status: Chronic Comment: Creatinine normalized. (5) Acute encephalopathy Code(s): G93.40 - ENCEPHALOPATHY, UNSPECIFIED Status: Resolved (6) BIMAL (acute kidney injury) Code(s): N17.9 - ACUTE KIDNEY FAILURE, UNSPECIFIED Status: Acute Comment: Creatinine normalized. - Plan * Adding Levaquin to the omnicef. Recheck cbc in am. * Discussed with the patient's MPOA. He is in [place], but heading this way. He believes that she needs to go to a NH. She has a bed approved, but tenuous.
[2018-03-18] MEDS: Losartan 25 MG TAB PO SCH (20:51)
[2018-03-19 04:27] LABS: Albumin 2.5 g/dL (3.4-4.8); Anion Gap 11 mmol/L (10-20); BUN (Urea Nitrogen) 13 mg/dL (9.8-20.1); BUN/Creatinine Ratio 18.57; Calc. Creatinine Clearance 134 mL/min (70-130); Calcium 8.5 mg/dL (7.8-10.44); Carbon Dioxide 32 mmol/L (23-31); Chloride 105 mmol/L (98-107); Estimated GFR-MDRD Greater than 90; Glucose 112 mg/dL (83-110); Potassium 3.9 mmol/L (3.5-5.1); Sodium 144 mmol/L (136-145)
[2018-03-19 04:33] LABS: Band 15 % (5-11); Eosinophils 2 % (0-10); Hypochromia SLIGHT = 6-15 cells (100X) (0-5/hpf); Lymphocytes 7 % (21-51); MDiff Complete? YES; Mean Corpuscular Hemoglobin 30.5 pg (27.0-31.0); Mean Corpuscular Volume 92.4 fL (78.0-98.0); Mean Platelet Volume 6.2 fL (7.4-10.4); Monocytes 4 % (0-10); Neutrophil 72 % (42-75); PLT Morphology Comment Appears Adequate; Platelet Count 261 thou/uL (130-400); RBC Distribution Width 13.7 % (11.5-14.5); Red Blood Cell (RBC) Count 3.28 mill/uL (4.20-5.40); White Blood Cell (WBC) Count 14.1 thou/uL (4.8-10.8)
[2018-03-19 04:40] LABS: Phosphorus 1.7 mg/dL (2.3-4.7)
[2018-03-19] MEDS: Levothyroxine Sodium 100 MCG TAB PO SCH (06:41)
[2018-03-19] MEDS: Mometasone/Formoterol 120 PUFF INHALER INH SCH (07:50)
[2018-03-19 07:52] VITALS: TEMP 97.8
[2018-03-19] MEDS: Clopidogrel Bisulfate 75 MG TAB PO SCH (08:10)
[2018-03-19] MEDS: K-Phos Neutral 250 MG TAB PO SCH ×3 (08:10→16:14)
[2018-03-19] MEDS: Cefdinir 300 MG CAP PO SCH (08:10)
[2018-03-19] MEDS: Gabapentin 300 MG CAP PO SCH ×2 (08:10→16:14)
[2018-03-19] MEDS: Aspirin 81 mg Enteric Coated Tablet PO SCH (08:11)
[2018-03-19] MEDS: cloNIDine 0.1 MG TAB PO SCH ×2 (08:11→16:14)
[2018-03-19] MEDS: Carvedilol 3.125 MG TAB PO SCH (08:11)
[2018-03-19] MEDS: Pantoprazole 40 MG GRANULES PACKET PO SCH (08:11)
[2018-03-19] MEDS: HYDROcodone/Acetaminophen 7.5/325 mg Tablet PO PRN (08:12)
[2018-03-19] MEDS: Docusate 100 MG CAP PO SCH (08:13)
[2018-03-19] MEDS: FLUoxetine HCl 20 MG CAP PO SCH (08:13)
[2018-03-19] MEDS: Heparin 5,000 UNITS/ML VIAL SC SCH ×2 (08:14→16:13)
[2018-03-19] MEDS: Metoprolol Tartrate 25 MG TAB PO SCH (08:14)
[2018-03-19] MEDS: Spironolactone 25 MG TAB PO SCH (08:14)
[2018-03-19] MEDS: Sodium Chloride 0.9% 1,000 ML IV SCH (11:00)
[2018-03-19] MEDS: Atorvastatin Calcium 40 MG TAB PO SCH (11:39)
--- NOTE | 2018-03-19 12:21 | EKG ---
Test Reason : Blood Pressure : / mmHG Vent. Rate : 094 BPM Atrial Rate : 094 BPM P-R Int : 168 ms QRS Dur : 100 ms QT Int : 346 ms P-R-T Axes : 040 036 -77 degrees QTc Int : 432 ms Normal sinus rhythm Inferior-posterior infarct , age undetermined Abnormal ECG Confirmed by EULOGIO TURPIN, JAYLAN ([id number]), editor index STEVE MARTINEZ ([id number]) on 03/19/2018 12:21:23 PM Referred By: Confirmed By:JAYLAN KRISHNAN MD
[2018-03-19 16:15] VITALS: BP 154/85
[2018-03-19] MEDS: fentaNYL 50 mcg/hour Patch TD SCH (16:35)
== END 2018-03-19 17:47 | DRG 871 ==
LOC: ERS 14:44 → IMCU/EMU 19:07 → T4-A 03-15 16:50
PROVIDERS: ADMIT Internal Medicine; ATTEND Internal Medicine
DX: A41.9 Sepsis, unspecified organism (principal); G93.40 Encephalopathy, unspecified; J96.02 Acute respiratory failure with hypercapnia; J96.01 Acute respiratory failure with hypoxia; J18.9 Pneumonia, unspecified organism; I50.43 Acute on chronic combined systolic (congestive) and diastolic (congestive) heart failure; N17.9 Acute kidney failure, unspecified; I24.8 Other forms of acute ischemic heart disease; I13.0 Hypertensive heart and chronic kidney disease with heart failure and stage 1 through stage 4 chronic kidney disease, or unspecified chronic kidney disease; N18.4 Chronic kidney disease, stage 4 (severe); I25.10 Atherosclerotic heart disease of native coronary artery without angina pectoris; E03.9 Hypothyroidism, unspecified; E78.5 Hyperlipidemia, unspecified; G47.33 Obstructive sleep apnea (adult) (pediatric); E55.9 Vitamin D deficiency, unspecified; F32.9 Major depressive disorder, single episode, unspecified; D64.9 Anemia, unspecified; G47.00 Insomnia, unspecified; K21.9 Gastro-esophageal reflux disease without esophagitis; F41.9 Anxiety disorder, unspecified; Z96.653 Presence of artificial knee joint, bilateral; Z88.2 Allergy status to sulfonamides; Z87.891 Personal history of nicotine dependence; Z66 Do not resuscitate; J44.9 Chronic obstructive pulmonary disease, unspecified; K31.84 Gastroparesis; Z91.19 Patient's noncompliance with other medical treatment and regimen; R65.20 Severe sepsis without septic shock; E66.01 Morbid (severe) obesity due to excess calories
CPT/HCPCS: 36415; 36416; 51702; 70450; 71045; 80053; 80069; 81003; 81015; 82550; 82553; 82805; 83605; 83690; 83880; 84484; 85025; 87040; 87070; 87077; 87086; 87149; 87186; 87205; 90471; 90670; 93005; 93010; 93306; 94640; 94660; 96361; 96365; 96367; 96374; A4216; G0009; G8978-GP-CL; G8979-GP-CJ; G8987-GO-CL; G8988-GO-CJ; G8996-GN-CM; G8997-GN-CM; J0692; J1100; J1644; J1956; J2270; J2920; J3475; J7050; J7611; J7620; S0028

== ENCOUNTER 2018-03-25 16:09 | Emergency (ER) | payer MEDICARE, MEDICAID ==
--- NOTE | 2018-03-25 18:54 | ULT ---
VENOUS DOPPLER ULTRASOUND OF THE LEFT LOWER EXTREMITY: 03/25/18 HISTORY: Left lower extremity pain and edema. TECHNIQUE: [place] scale ultrasound with color flow and spectral doppler imaging of the deep venous system of the l eft lower extremity was performed. FINDINGS: There is good flow, compression and augmentation noted in the left common femoral, femoral, deep femo ral, popliteal, posterior tibial, and greater saphenous veins. IMPRESSION: No evidence of DVT in the left lower extremity. POS: IRINA
[2018-03-25 19:02] LABS: Hemoglobin 9.8 g/dL (12.0-16.0); Mean Corpuscular HGB CONC 31.8 g/dL (32.0-36.0); Mean Corpuscular Hemoglobin 29.6 pg (27.0-31.0); Mean Corpuscular Volume 92.9 fL (78.0-98.0); Mean Platelet Volume 5.9 fL (7.4-10.4); Platelet Count 414 thou/uL (130-400); RBC Distribution Width 13.5 % (11.5-14.5); White Blood Cell (WBC) Count 11.9 thou/uL (4.8-10.8)
[2018-03-25 19:21] LABS: ALT (SGPT) 20 U/L (8-55); AST (SGOT) 32 U/L (5-34); Albumin 2.9 g/dL (3.4-4.8); Alkaline Phosphatase 190 U/L (40-150); BUN (Urea Nitrogen) 25 mg/dL (9.8-20.1); Bilirubin, Total 0.8 mg/dL (0.2-1.2); Calc. Creatinine Clearance 0 mL/min (70-130); Calcium 8.9 mg/dL (7.8-10.44); Estimated GFR-MDRD 41; Globulin 4.1 g/dL (2.4-3.5); Glucose 97 mg/dL (83-110)
[2018-03-25 19:27] LABS: Band 8 % (5-11); Eosinophils 2 % (0-10); Lymphocytes 5 % (21-51); MDiff Complete? YES; Monocytes 1 % (0-10); Myelocyte 1 % (0-0); Neutrophil 78 % (42-75); Reactive Lymphocytes 4 % (0-10)
[2018-03-25 19:30] LABS: Anion Gap 21 mmol/L (10-20); Carbon Dioxide 37 mmol/L (23-31); Chloride 88 mmol/L (98-107); Potassium 3.4 mmol/L (3.5-5.1); Sodium 143 mmol/L (136-145)
--- NOTE | 2018-03-25 20:44 | CT ---
CT CHEST WITHOUT CONTRAST: 03/25/18 HISTORY: Coughing up bloody sputum, dyspnea. FINDINGS: Absence of IV contrast reduces the sensitivity of the exam particularly for the evaluation of mediast inal, hilar and vascular structures. There are vascular calcifications without evidence of aneurysmal dilatation of the thoracic aorta. No pericardial or left pleural effusions are seen. There are consolidative changes in the lung bases wi th accompanying small right pleural effusion. No pneumothoraces are identified. The tracheobronchial tree appears patent. There is a 5 mm nodule in the right upper lobe. Upper abdominal tomograms demons trate changes of cholecystectomy and a stable 3.9 cm low dense lesion in the inferior aspect of the s pleen since 12/05/12. Degenerative changes are present in the spine. There are postop changes in the s tomach. IMPRESSION: 1. Bibasilar consolidation and small right pleural effusion. 2. 5 mm right upper lobe nodule. 6 month follow up is recommended. CODE T POS: IRINA
== END 2018-03-25 22:42 | disposition home or self-care (01) ==
LOC: ERS 16:09
DX: M79.605 Pain in left leg (principal); R04.2 Hemoptysis; I11.0 Hypertensive heart disease with heart failure; I50.9 Heart failure, unspecified; J44.9 Chronic obstructive pulmonary disease, unspecified; E03.9 Hypothyroidism, unspecified; R73.03 Prediabetes
CPT/HCPCS: 36415; 71250; 80053; 83605; 85025

== ENCOUNTER 2018-04-03 07:35 | Emergency (ER) | payer MEDICARE, MEDICAID ==
[2018-04-03 08:39] LABS: Hemoglobin 9.1 g/dL (12.0-16.0); Mean Corpuscular HGB CONC 31.6 g/dL (32.0-36.0); Mean Corpuscular Hemoglobin 29.2 pg (27.0-31.0); Mean Corpuscular Volume 92.4 fL (78.0-98.0); Mean Platelet Volume 5.2 fL (7.4-10.4); Platelet Count 539 thou/uL (130-400); Red Blood Cell (RBC) Count 3.11 mill/uL (4.20-5.40); White Blood Cell (WBC) Count 8.2 thou/uL (4.8-10.8)
[2018-04-03 09:04] LABS: CKMB 0.9 ng/mL (0-6.6); Troponin I Less than 0.010 ng/mL (< 0.028)
[2018-04-03 09:07] LABS: Band 7 % (5-11); Eosinophils 4 % (0-10); Lymphocytes 5 % (21-51); MDiff Complete? YES; Monocytes 8 % (0-10); Neutrophil 74 % (42-75); PLT Morphology Comment Appears Increased; Polychromasia SLIGHT = 2-3 cells (100X) (0-2/hpf)
[2018-04-03 09:08] LABS: ALT (SGPT) 17 U/L (8-55); AST (SGOT) 19 U/L (5-34); Albumin 3.1 g/dL (3.4-4.8); Alkaline Phosphatase 114 U/L (40-150); BUN (Urea Nitrogen) 25 mg/dL (9.8-20.1); Bilirubin, Total 1.1 mg/dL (0.2-1.2); CK (CPK) 14 U/L (29-168); Calc. Creatinine Clearance 0 mL/min (70-130); Calcium 9.2 mg/dL (7.8-10.44); Estimated GFR-MDRD 49; Globulin 3.7 g/dL (2.4-3.5); Glucose 85 mg/dL (83-110); Protein, Total 6.8 g/dL (6.0-8.3)
--- NOTE | 2018-04-03 09:09 | RAD ---
PORTABLE AP CHEST: Date: 04/03/18 HISTORY: Dyspnea. Weak and lethargic. COMPARISON: 04/02/18. FINDINGS: There is patchy parenchymal density again seen at the right lung base, likely related to residual pne umonia, although there is suboptimal evaluation due to patient positioning. Left lung appears clear. Cardiac silhouette and bronchovascular markings are magnified by projection and shallow depth of insp iration. Left humeral prosthesis is again present. No other interval change. IMPRESSION: 1. Persistent patchy opacity at the right lung base, likely related to residual pneumonia. Continued follow-up to complete resolution is recommended. 2. Accentuation of the cardiac silhouette, but cardiac silhouette does appear mildly enlarged. POS: DEE
[2018-04-03 09:46] LABS: Carbon Dioxide 37 mmol/L (23-31); Chloride 91 mmol/L (98-107); Potassium 3.4 mmol/L (3.5-5.1); Sodium 142 mmol/L (136-145)
[2018-04-03 09:53] LABS: CO2 Tension 72.4 mmHg (35.0-45.0); pH, Arterial 7.42 (7.35-7.45)
[2018-04-03 09:54] LABS: Actual Bicarbonate (HCO3a) 45.7 mEq/L (22-28); Base Excess (BEa) 18.5 mEq/L (-2.0 to +3.0); Hemoglobin (Hb) 9.3 g/dL (12.0-16.0); O2 Tension (PaO2) 84.3 mmHg (> 70.0)
[2018-04-03 09:55] LABS: Analyzer IN Cardio ER; Calcium, Ionized 1.1 mmol/L (1.12-1.30); Puncture Site RRA
== END 2018-04-03 11:26 | disposition home or self-care (01) ==
LOC: ERS 07:35
DX: R06.02 Shortness of breath (principal); E78.5 Hyperlipidemia, unspecified; E03.9 Hypothyroidism, unspecified; J44.9 Chronic obstructive pulmonary disease, unspecified; I13.0 Hypertensive heart and chronic kidney disease with heart failure and stage 1 through stage 4 chronic kidney disease, or unspecified chronic kidney disease; I50.9 Heart failure, unspecified; N18.4 Chronic kidney disease, stage 4 (severe); K21.9 Gastro-esophageal reflux disease without esophagitis; F41.9 Anxiety disorder, unspecified; Z79.899 Other long term (current) drug therapy; Z79.82 Long term (current) use of aspirin
CPT/HCPCS: 36415; 71045; 80053; 82550; 82553; 82805; 83880; 84484; 85025; 93005; 94760